=== PATIENT | female | born 1985 | race Caucasian/White ===

== ENCOUNTER 2020-01-31 16:45 | Inpatient (IN) | payer MEDICAID ==
[~2020-01-31] VITALS: Ht 170.2 cm; Wt 67.3 kg
[~2020-01-31 16:45] MED LIST: NO HOME MEDS
[2020-01-31] MEDS ORDERED: acetaminophen 325mg tablet PO ONE (17:15)
[2020-01-31] MEDS ORDERED: normal saline 1000ml 1,000 ML IV ONE (17:15)
[2020-01-31] MEDS: HYDROmorphone 1 mg/ml syringe IV PRN ×2 (17:47→19:35)
[2020-01-31] MEDS ORDERED: morphine 2 MG/ML inj. syringe IV PRN (17:50)
[2020-01-31] MEDS ORDERED: HYDROcodone/acetaminophen 5mg/325mg tablet PO PRN (17:50)
[2020-01-31] MEDS ORDERED: acetaminophen 325mg tablet PO PRN ×2 (17:50)
[2020-01-31] MEDS ORDERED: HYDROcodone/acetaminophen 10/325mg tab PO PRN (17:50)
[2020-01-31] MEDS ORDERED: mag hydrox/Alum hydrox/simeth 30ml oral suspension PO PRN (17:50)
[2020-01-31] MEDS ORDERED: magnesium hydroxide 30ml (MOM) UD suspension PO PRN (17:50)
[2020-01-31] MEDS ORDERED: ondansetron/PF 4mg/2ml inj IV PRN (17:50)
[2020-01-31] MEDS ORDERED: metoclopramide 5 mg/ml inj IV PRN (17:50)
--- NOTE | 2020-01-31 18:24 | NUR ---
RE SWAB SPECIMEN FOR COVID
[2020-01-31] MEDS: normal saline 1000ml 1,000 ML IV SCH (19:32)
[2020-01-31] MEDS: hydrocortisone sod succ/PF 100mg/2ml inj. IV SCH (20:30)
[2020-01-31] MEDS ORDERED: BUPR300T53 PO (20:52)
[2020-01-31] MEDS ORDERED: HYDR-3686 PO (20:52)
[2020-01-31] MEDS ORDERED: ISOT40CA PO (20:52)
[2020-02-01] VITALS: BP 116/71
[2020-02-01] MEDS: morphine 2 MG/ML inj. syringe IV PRN ×2 (00:21→08:36)
[2020-02-01] MEDS ORDERED: hydrOXYzine 25 MG tablet PO PRN (00:40)
[2020-02-01] MEDS: hydrocortisone sod succ/PF 100mg/2ml inj. IV SCH ×3 (01:11→13:55)
[2020-02-01] MEDS: normal saline 1000ml 1,000 ML IV SCH ×2 (05:24→13:50)
[2020-02-01 05:47] LABS: BASOPHILS % (AUTO) 0.1 % (0-1); EOSINOPHILS % (AUTO) 0 % (0-6); HEMATOCRIT 25.9 % (35.0-45.0); HEMOGLOBIN 8.2 g/dl (12.0-16.0); LYMPHOCYTES # (AUTO) 0.7 X10'3 (1.1-4.8); LYMPHOCYTES % (AUTO) 24.9 % (21-51); MEAN CORPUSCULAR HEMOGLOBIN 23.8 PG (27.0-31.0); MEAN CORPUSCULAR HGB CONC 31.6 g/dL (33.0-36.5); MEAN CORPUSCULAR VOLUME 75.2 FL (78-98); MEAN PLATELET VOLUME 8.5 FL (7.4-10.4); MONOCYTES # (AUTO) 0.1 X10'3 (0-0.9); MONOCYTES % (AUTO) 3.6 % (2-12); NEUTROPHILS # (AUTO) 2.1 X10'3 (1.8-7.7); NEUTROPHILS % (AUTO) 71.4 % (42-75); PLATELET COUNT 333 X10'3 (140-440); RED BLOOD COUNT 3.45 X10'6 (4.20-5.60); RED CELL DISTRIBUTION WIDTH 15.8 % (11.5-14.5); WHITE BLOOD COUNT 2.9 X10'3 (4.5-11.0)
[2020-02-01 05:51] LABS: ANION GAP 10 (8-16); BLOOD UREA NITROGEN 5 MG/DL (7-18); BUN/CREATININE RATIO 6.6 (6.6-38.0); CALCIUM 7.6 MG/DL (8.5-10.1); CHLORIDE 107 MMOL/L (99-107); CREATININE 0.76 MG/DL (0.40-0.90); GLUCOSE 131 MG/DL (70-104); POTASSIUM 4.1 MMOL/L (3.5-5.1); SODIUM 140 MMOL/L (135-145); TOTAL CARBON DIOXIDE 23.5 MMOL/L (24-32); eGFR 87 ML/MIN
--- NOTE | 2020-02-01 06:19 | NUR ---
Patient in room [facility]. I have received report from Juan and had the opportunity to ask questions and assume patient care.
[2020-02-01 07:00] VITALS: BP 115/73
[2020-02-01 07:10] LABS: PLATELET ESTIMATE NORMAL; TOTAL CELLS COUNTED 100
[2020-02-01 08:00] VITALS: BP 115/73
[2020-02-01 11:00] VITALS: BP 109/71
[2020-02-01] MEDS ORDERED: PRED10TA23 PO (15:10)
[2020-02-01] MEDS ORDERED: HYDR-4353 PO (15:10)
--- NOTE | 2020-02-01 18:18 | NUR ---
PATIENT DISCHARGE INTO HOME CARE AT HER HOUSE WITH FAMILY, IN QUARANTINE AT THIS TIME. PATIENT HAS FAMILY TO HELP AND IS AWARE OF MEDICATION CHANGES FOR DISCHARGE AND WILL GRAIN SHIPPER ON WAY HOME. PATIENT DISCHARGE EXPRESSED VERBAL UNDERSTANDING OF DISCHARGE TEACHING. PATIENT IV TAKEN OUT FROM THE [place] AT DISCHARGE [place] INTACT AND PATIENT LEFT WITH ALL BELONGINGS AND SPECIAL COVID DISCHARGE ROUTINE.
== END 2020-02-01 17:27 | disposition home or self-care (01) | DRG 245 ==
LOC: ER 16:46 → ED HOLD 17:47 → SUR 3N 23:50
PROVIDERS: ADMIT Internal Medicine; ATTEND Internal Medicine
DX: K51.90 Ulcerative colitis, unspecified, without complications (principal); D62 Acute posthemorrhagic anemia; E43 Unspecified severe protein-calorie malnutrition; Z68.23 Body mass index [BMI] 23.0-23.9, adult; U07.1 COVID-19; J98.8 Other specified respiratory disorders; F17.210 Nicotine dependence, cigarettes, uncomplicated; F32.9 Major depressive disorder, single episode, unspecified
CPT/HCPCS: 80048; 85007; 85025; 87081; 87635; 99285; G0378; J1170; J1720; J2270; J2405; J7030; Q0177

== ENCOUNTER 2023-05-31 20:45 | Inpatient (IN) | payer MEDICAID ==
[~2023-05-31] VITALS: Ht 170.2 cm; Wt 80.1 kg
[~2023-05-31 20:45] MED LIST changes: +BUPR300T53 PO; +HYDR-3686 PO; +ISOT40CA PO; -NO HOME MEDS
[2023-05-31] MEDS ORDERED: HYDR-3972 PO (21:17)
[2023-05-31] MEDS ORDERED: EPIN0.3P3 IM (21:17)
[2023-05-31] MEDS ORDERED: ONDA4TAB12 PO (21:17)
[2023-05-31 21:37] LABS: BASOPHILS # (AUTO) 0.1 X10'3 (0-0.2); BASOPHILS % (AUTO) 0.3 % (0-1); EOSINOPHILS # (AUTO) 0.1 X10'3 (0-0.9); EOSINOPHILS % (AUTO) 0.4 % (0-6); HEMATOCRIT 41.1 % (35.0-45.0); HEMOGLOBIN 13.6 g/dl (12.0-16.0); LYMPHOCYTES # (AUTO) 0.6 X10'3 (1.1-4.8); LYMPHOCYTES % (AUTO) 2.9 % (21-51); MEAN CORPUSCULAR HEMOGLOBIN 29.4 PG (27.0-31.0); MEAN CORPUSCULAR VOLUME 89.1 FL (78-98); MEAN PLATELET VOLUME 9.3 FL (7.4-10.4); MONOCYTES # (AUTO) 0.9 X10'3 (0-0.9); MONOCYTES % (AUTO) 4.4 % (2-12); NEUTROPHILS # (AUTO) 18.2 X10'3 (1.8-7.7); PLATELET COUNT 277 X10'3 (140-440); RED BLOOD COUNT 4.61 X10'6 (4.20-5.60); RED CELL DISTRIBUTION WIDTH 15.1 % (11.5-14.5); WHITE BLOOD COUNT 19.8 X10'3 (4.5-11.0)
[2023-05-31 21:43] LABS: ALANINE AMINOTRANSFERASE 18 U/L (12-78); ALBUMIN 2.8 G/DL (3.4-5.0); ALBUMIN/GLOBULIN RATIO 0.9 (1.1-1.5); ALKALINE PHOSPHATASE 38 IU/L (46-116); ANION GAP 12 (8-16); ASPARTATE AMINO TRANSFERASE 13 U/L (10-37); BILIRUBIN,TOTAL 0.7 MG/DL (0.1-1.0); BLOOD UREA NITROGEN 10 MG/DL (7-18); BUN/CREATININE RATIO 9.4 (10.0-20.0); CALCIUM 7.4 MG/DL (8.5-10.1); CHLORIDE 111 MMOL/L (99-107); CREATININE 1.06 MG/DL (0.40-0.90); GLUCOSE 101 MG/DL (70-104); LIPASE 21 U/L (16-77); POTASSIUM 4.3 MMOL/L (3.5-5.1); SODIUM 144 MMOL/L (135-145); TOTAL CARBON DIOXIDE 20.9 MMOL/L (24-32); TOTAL PROTEIN 5.8 G/DL (6.4-8.2); eCRCL 70 ML/MIN; eGFR 58 ML/MIN
[2023-05-31 22:53] LABS: URINE HCG NEGATIVE (NEG)
[2023-05-31 22:55] LABS: BILIRUBIN,URINE NEGATIVE (Neg); CLARITY,URINE SLIGHTLY CLOUDY (Clear); COLOR,URINE AMBER (Yellow); GLUCOSE, URINE NEGATIVE (Neg); KETONES,URINE 40 mg/dl (Neg); LEUKOCYTE ESTERASE ,URINE NEGATIVE (Neg); NITRITES, URINE NEGATIVE (Neg); OCCULT BLOOD,URINE NEGATIVE (Neg); PH,URINE 5.5 (4.8-8.0); PROTEIN,URINE NEGATIVE (Neg); UROBILINOGEN,URINE 0.2 E.U/dL (0.2-1.0)
[2023-05-31 23:08] LABS: UA COLLECTION TYPE CLN CATCH MIDSTREAM
[2023-05-31 23:11] LABS: BACTERIA,URINE FEW /HPF (Neg); MUCUS STRANDS MANY /LPF (Neg); RBC,URINE NONE SEEN /HPF (0-2); SQUAMOUS EPITHELIAL CELL,UR MANY /LPF (FEW); WBC,URINE 0-4 /HPF (0-4)
[2023-05-31] MEDS ORDERED: HYDROmorphone/PF 0.2 MG/ML SYRINGE IV STA (23:20)
[2023-05-31] MEDS: HYDROmorphone 1 mg/ml syringe IV STA (23:29)
[2023-06-01] VITALS (7 sets, daily range): BP systolic 104–112; BP diastolic 51–73; PULSE 91–94; RESP 14–18; TEMP 98.2–99.3; O2SAT 95–98
[2023-06-01] MEDS: metroNIDAZOLE-Flagyl 500mg/NS 100 ML IV STA (02:38)
[2023-06-01] MEDS: dexamethasone sod phosphate 10mg/ml inj IV STA (03:03)
[2023-06-01] MEDS ORDERED: potassium Cl 40MEQ/1/2NS 520ml 520 ML IV PRN (04:05)
[2023-06-01] MEDS ORDERED: mag hydrox/Alum hydrox/simeth 30ml oral suspension PO PRN (04:05)
[2023-06-01] MEDS ORDERED: potassium Cl 20 mEq SR tablet PO PRN ×2 (04:05)
[2023-06-01] MEDS ORDERED: magnesium Cl slow-release 64mg tablet PO PRN (04:05)
[2023-06-01] MEDS ORDERED: ketorolac trometh. 30mg/ml inj. IV ONE (04:05)
[2023-06-01] MEDS ORDERED: magnesium 2GM in 50ml NS 50 ML IV PRN (04:05)
[2023-06-01] MEDS ORDERED: magnesium hydroxide 30ml (MOM) UD suspension PO PRN (04:05)
[2023-06-01] MEDS ORDERED: magnesium 4gm in 100ml NS 100 ML IV PRN (04:05)
[2023-06-01] MEDS: diphenhydrAMINE 50 mg/ml inj IV ONE ×2 (04:34→21:49)
[2023-06-01] MEDS: temazepam 15mg capsule PO ONE (04:34)
[2023-06-01] MEDS: proCHLORperazine 10 MG/2 ml inj IV ONE ×2 (04:34→21:49)
[2023-06-01] MEDS: ketorolac tromethamine 15mg/ml inj. IV ONE (04:35)
[2023-06-01] MEDS: normal saline 1000ml 1,000 ML IV SCH (04:36)
[2023-06-01] MEDS: CefTRIAXone/D5W-Rocephin 1gm 50 ML IV SCH (07:56)
[2023-06-01] MEDS: pantoprazole 40 MG vial IV SCH (07:56)
[2023-06-01] MEDS: buPROPion SR 150mg tablet PO SCH (07:56)
[2023-06-01] MEDS: docusate sod 100mg capsule PO SCH (07:57)
[2023-06-01] MEDS: predniSONE 20 mg tablet PO SCH (07:57)
[2023-06-01] MEDS: K and/or MAG REPLACEMENT MC SCH (08:00)
[2023-06-01] MEDS: metroNIDAZOLE-Flagyl 500mg/NS 100 ML IV SCH (09:30)
[2023-06-01] MEDS: HYDROmorphone 1 mg/ml syringe IV PRN (09:53)
[2023-06-01 12:42] LABS: BASOPHILS % (AUTO) 0.2 % (0-1); EOSINOPHILS % (AUTO) 0.2 % (0-6); LYMPHOCYTES # (AUTO) 0.4 X10'3 (1.1-4.8); LYMPHOCYTES % (AUTO) 4.8 % (21-51); MEAN CORPUSCULAR HEMOGLOBIN 29.4 PG (27.0-31.0); MEAN CORPUSCULAR HGB CONC 33.2 g/dL (33.0-36.5); MEAN CORPUSCULAR VOLUME 88.5 FL (78-98); MEAN PLATELET VOLUME 9.1 FL (7.4-10.4); MONOCYTES # (AUTO) 0.2 X10'3 (0-0.9); NEUTROPHILS # (AUTO) 7.9 X10'3 (1.8-7.7); NEUTROPHILS % (AUTO) 92.8 % (42-75); PLATELET COUNT 244 X10'3 (140-440); RED BLOOD COUNT 4.06 X10'6 (4.20-5.60); RED CELL DISTRIBUTION WIDTH 15.3 % (11.5-14.5); WHITE BLOOD COUNT 8.5 X10'3 (4.5-11.0)
[2023-06-01 12:45] LABS: C DIFF ANTIGEN NEGATIVE (NEGATIVE); C DIFF SPECIMEN=DIARRHEA? ACCEPTABLE; C DIFFICILE TOXINS A&B NEGATIVE (Neg)
[2023-06-01] MEDS: acetaminophen 325mg tablet PO PRN (18:27)
[2023-06-01] MEDS: ondansetron/PF 4mg/2ml inj IV PRN (20:22)
[2023-06-01] MEDS: hydrOXYzine 25 MG tablet PO SCH (20:22)
[2023-06-01] MEDS: ketorolac trometh. 30mg/ml inj. IV ONE (21:49)
[2023-06-02 06:04] LABS: BASOPHILS % (AUTO) 0.2 % (0-1); EOSINOPHILS % (AUTO) 0.5 % (0-6); HEMATOCRIT 32.5 % (35.0-45.0); LYMPHOCYTES # (AUTO) 1.1 X10'3 (1.1-4.8); MEAN CORPUSCULAR HEMOGLOBIN 29.8 PG (27.0-31.0); MEAN CORPUSCULAR HGB CONC 33.7 g/dL (33.0-36.5); MEAN CORPUSCULAR VOLUME 88.5 FL (78-98); MONOCYTES # (AUTO) 0.6 X10'3 (0-0.9); MONOCYTES % (AUTO) 9.9 % (2-12); NEUTROPHILS # (AUTO) 4.4 X10'3 (1.8-7.7); NEUTROPHILS % (AUTO) 71.4 % (42-75); PLATELET COUNT 231 X10'3 (140-440); RED BLOOD COUNT 3.68 X10'6 (4.20-5.60); RED CELL DISTRIBUTION WIDTH 15.3 % (11.5-14.5); WHITE BLOOD COUNT 6.2 X10'3 (4.5-11.0)
[2023-06-02 06:21] LABS: ALANINE AMINOTRANSFERASE 16 U/L (12-78); ALBUMIN 2.4 G/DL (3.4-5.0); ALBUMIN/GLOBULIN RATIO 0.8 (1.1-1.5); ALKALINE PHOSPHATASE 37 IU/L (46-116); ANION GAP 5 (8-16); ASPARTATE AMINO TRANSFERASE 13 U/L (10-37); BILIRUBIN,TOTAL 0.3 MG/DL (0.1-1.0); BLOOD UREA NITROGEN 2 MG/DL (7-18); BUN/CREATININE RATIO 2.4 (10.0-20.0); CALCIUM 7.7 MG/DL (8.5-10.1); CHLORIDE 111 MMOL/L (99-107); CREATININE 0.82 MG/DL (0.40-0.90); GLUCOSE 112 MG/DL (70-104); MAGNESIUM 1.7 MG/DL (1.5-2.4); POTASSIUM 3.6 MMOL/L (3.5-5.1); SODIUM 142 MMOL/L (135-145); TOTAL CARBON DIOXIDE 25.6 MMOL/L (24-32); TOTAL PROTEIN 5.5 G/DL (6.4-8.2); eCRCL 90 ML/MIN; eGFR 78 ML/MIN
[2023-06-02 07:00] VITALS: BP 110/66; PULSE 88; RESP 14; TEMP 98; O2SAT 95
[2023-06-02 10:00] VITALS: BP 106/66; PULSE 82; RESP 18; TEMP 98.8; O2SAT 100
[2023-06-02] MEDS ORDERED: ONDA4TAB12 PO (12:41)
[2023-06-02] MEDS ORDERED: HYDR-3972 PO ×2 (12:41→12:42)
[2023-06-02] MEDS ORDERED: PRED20TA PO (12:41)
[2023-06-02 13:46] VITALS: RESP 16
== END 2023-06-02 12:15 | disposition home or self-care (01) | DRG 245 ==
LOC: ER 20:45 → ED HOLD 06-01 04:04 → SUR 3N 06-01 05:34
PROVIDERS: ADMIT Internal Medicine Pulmonary Disease; ATTEND Internal Medicine
DX: K51.919 Ulcerative colitis, unspecified with unspecified complications (principal); N17.0 Acute kidney failure with tubular necrosis; F41.9 Anxiety disorder, unspecified; F32.A Depression, unspecified; Z88.0 Allergy status to penicillin; Z87.891 Personal history of nicotine dependence; Z80.3 Family history of malignant neoplasm of breast; Z85.41 Personal history of malignant neoplasm of cervix uteri
CPT/HCPCS: 36415; 80053; 81001; 81025; 83605; 83690; 83735; 84100; 84145; 85025; 87081; 87324; 87449; 96374; 96375; 99291; A6258; C9113; G0378; J0696; J0780; J1170; J1200; J1885; J2405; J3490; J7030; J7512; Q0177